=== PATIENT | male | born 1965 | race Two or more races ===

== ENCOUNTER 2020-04-13 21:33 | Emergency (ER) | payer OTHER ==
[~2020-04-13] VITALS: Ht 175.3 cm; Wt 136.1 kg
[~2020-04-13 21:33] MED LIST: AMARIL; AVAPRO300 MG PO; ECOTRIN81 MG; HYDROCHLOROTH12.5 M1; JANUMET XR 1001 EACH; MIRTAZAPINE7.5 MG; NORVASC5 MG; OLANZAPINE5 MG; SINGULAIR 10MG10 MG PO; TRANXENE T-TAB7.5 MG; VYTORIN 10/20 T1 TAB PO
== END 2020-04-14 05:55 | disposition home or self-care (01) ==
LOC: ER 21:33
DX: E11.649 Type 2 diabetes mellitus with hypoglycemia without coma (principal)

== ENCOUNTER 2022-01-16 20:25 | Emergency (ER) | payer OTHER ==
[~2022-01-16] VITALS: Ht 170.2 cm; Wt 125.6 kg
[2022-01-16] MEDS ORDERED: GRALISE600 MG PO (20:36)
== END 2022-01-17 00:09 | disposition home or self-care (01) ==
LOC: ER 20:25
DX: R07.89 Other chest pain (principal); I10 Essential (primary) hypertension; E11.9 Type 2 diabetes mellitus without complications; Z79.84 Long term (current) use of oral hypoglycemic drugs